=== PATIENT | male | born 1950 | race Caucasian/White ===

== ENCOUNTER 2016-12-13 19:33 | Emergency (ER) | payer MEDICARE, OTHER ==
[~2016-12-13] VITALS: Ht 185.4 cm; Wt 94.3 kg
[2016-12-13 19:33] VITALS: BP 133/74
[2016-12-13 20:12] LABS: BASOPHILS % (AUTO) 0.5 % (0.0-2.0); EOSINOPHILS # (AUTO) 0.1 /CMM (0.0-0.7); EOSINOPHILS % (AUTO) 2.8 % (0.0-6.0); HEMATOCRIT 42 % (39-51); HEMOGLOBIN 14.1 g/dL (13.5-17.5); LYMPHOCYTES # (AUTO) 1.1 /CMM (0.8-4.8); LYMPHOCYTES % (AUTO) 21.4 % (20.0-44.0); MEAN CORPUSCULAR HEMOGLOBIN 30 PG (26.0-33.0); MEAN CORPUSCULAR HGB CONC 33 g/dl (31.0-36.0); MEAN CORPUSCULAR VOLUME 89 fL (80-96); MONOCYTES # (AUTO) 0.3 /CMM (0.1-1.30); MONOCYTES % (AUTO) 6.5 % (2.0-12.0); NEUTROPHILS # (AUTO) 3.7 /CMM (1.8-8.9); NEUTROPHILS % (AUTO) 68.8 % (43.0-81.0); PLATELET COUNT (AUTO) 131 /CMM (150-450); RDW COEFFICIENT OF VARIATION 13.4 (11.5-15.0); RED BLOOD CELL COUNT(AUTO) 4.73 MIL/uL (4.5-6.0); WHITE BLOOD COUNT (AUTO) 5.2 K/uL (4.3-11.0)
[2016-12-13 20:20] LABS: CALCIUM, SERUM 8.8 mg/dL (8.5-10.1); CREATININE 1.1 mg/dL (0.6-1.3); POTASSIUM 4.5 mmol/L (3.5-5.1)
[2016-12-13 20:24] LABS: INR 0.92 (0.87-1.13); PROTHROMBIN TIME 9.6 SECS (9.5-12.7)
== END 2016-12-13 22:02 | disposition home or self-care (01) ==
LOC: ER 19:35
DX: Z01.812 Encounter for preprocedural laboratory examination (principal); I50.9 Heart failure, unspecified; Z95.2 Presence of prosthetic heart valve; D69.6 Thrombocytopenia, unspecified
CPT/HCPCS: 36415; 80048; 83735; 85025; 85730; 99284; A4606; Z7610

== ENCOUNTER 2017-07-11 12:48 | Outpatient (CLI) | payer MEDICARE, OTHER ==
[2017-07-11 13:06] LABS: BASOPHILS % (AUTO) 0.4 % (0.0-2.0); EOSINOPHILS # (AUTO) 0.1 /CMM (0.0-0.7); EOSINOPHILS % (AUTO) 1.2 % (0.0-6.0); HEMATOCRIT 41 % (39-51); HEMOGLOBIN 13.7 g/dL (13.5-17.5); LYMPHOCYTES % (AUTO) 17.7 % (20.0-44.0); MEAN CORPUSCULAR HEMOGLOBIN 31 PG (26.0-33.0); MEAN CORPUSCULAR HGB CONC 34 g/dl (31.0-36.0); MEAN CORPUSCULAR VOLUME 91 fL (80-96); MONOCYTES # (AUTO) 0.3 /CMM (0.1-1.30); MONOCYTES % (AUTO) 5.2 % (2.0-12.0); NEUTROPHILS # (AUTO) 4.4 /CMM (1.8-8.9); NEUTROPHILS % (AUTO) 75.5 % (43.0-81.0); PLATELET COUNT (AUTO) 142 /CMM (150-450); RDW COEFFICIENT OF VARIATION 14.7 (11.5-15.0); WHITE BLOOD COUNT (AUTO) 5.8 K/uL (4.3-11.0)
[2017-07-11 13:22] LABS: ALBUMIN 3.8 g/dL (3.4-5.0); BILIRUBIN,TOTAL 0.3 mg/dL (0.2-1.0); CALCIUM, SERUM 8.9 mg/dL (8.5-10.1); CREATININE 1.2 mg/dL (0.6-1.3); POTASSIUM 4.1 mmol/L (3.5-5.1); TOTAL PROTEIN, SERUM 7.6 g/dL (6.4-8.2)
[2017-07-11 13:31] LABS: THYROID STIMULATING HORMONE 0.891 uIU/mL (0.358-3.74)
== END 2017-07-11 23:59 | disposition home or self-care (01) ==
LOC: LAB 12:48
DX: I50.9 Heart failure, unspecified (principal); R60.9 Edema, unspecified
CPT/HCPCS: 36415; 80053-TC; 80061-TC; 84436-TC; 84443-TC; 85025-TC

== ENCOUNTER 2018-08-31 23:35 | Emergency (ER) | payer MEDICARE, MEDICAID ==
[~2018-08-31] VITALS: Ht 182.9 cm; Wt 90.7 kg
[2018-08-31 23:53] VITALS: BP 156/74
[2018-09-01] MEDS ORDERED: LIDOCAINE 1%-EPI 1:100,000 20 ML VIAL TP ONE (00:30)
[2018-09-01] MEDS ORDERED: TDAP [DIPH/PERTUSSIS/TET] 0.5 ML VIAL IM ONE ×2 (00:30→01:31)
[2018-09-01] MEDS ORDERED: LIDOCAINE 1%-EPI 1:100,000 20 ML VIAL ONE (00:32)
--- NOTE | 2018-09-01 01:44 | NUR ---
Patient discharged to home in stable condition. Written and verbal after care instructions given. Patient verbalizes understanding of instruction.
== END 2018-09-01 02:07 | disposition home or self-care (01) ==
LOC: ER 23:35
DX: S01.112A Laceration without foreign body of left eyelid and periocular area, initial encounter (principal); I50.9 Heart failure, unspecified; Z95.4 Presence of other heart-valve replacement; W01.198A Fall on same level from slipping, tripping and stumbling with subsequent striking against other object, initial encounter; Y93.89 Activity, other specified; Y92.89 Other specified places as the place of occurrence of the external cause; Y99.8 Other external cause status
CPT/HCPCS: 12015; 90471; 90715; 99285; J3490

== ENCOUNTER 2018-09-04 08:51 | Emergency (ER) | payer MEDICARE, MEDICAID ==
[~2018-09-04] VITALS: Ht 185.4 cm; Wt 110.2 kg
[2018-09-04 08:51] VITALS: BP 125/73
== END 2018-09-04 09:50 | disposition home or self-care (01) ==
LOC: ER 08:56
DX: S01.112D Laceration without foreign body of left eyelid and periocular area, subsequent encounter (principal); I50.9 Heart failure, unspecified; Z95.4 Presence of other heart-valve replacement; X58.XXXD Exposure to other specified factors, subsequent encounter
CPT/HCPCS: Z7502

== ENCOUNTER 2018-09-05 14:23 | Emergency (ER) | payer MEDICARE, MEDICAID ==
[~2018-09-05] VITALS: Ht 180.3 cm; Wt 85.7 kg
[2018-09-05 14:46] VITALS: BP 142/88
[2018-09-05] MEDS ORDERED: BACITRACIN ZINC OINT PACKET 1 EA PACKET TP ONE ×2 (15:12→15:30)
--- NOTE | 2018-09-05 15:17 | NUR ---
Patient discharged to home in stable condition. Written and verbal after care instructions given. Patient verbalizes understanding of instruction.
== END 2018-09-05 15:17 | disposition home or self-care (01) ==
LOC: ER 14:24
DX: S01.112D Laceration without foreign body of left eyelid and periocular area, subsequent encounter (principal); I50.9 Heart failure, unspecified; Z95.4 Presence of other heart-valve replacement; X58.XXXD Exposure to other specified factors, subsequent encounter
CPT/HCPCS: 99282; A6402

== ENCOUNTER 2019-06-14 11:51 | Emergency (ER) | payer MEDICARE, MEDICAID ==
[~2019-06-14] VITALS: Ht 180.3 cm; Wt 85.7 kg
--- NOTE | 2019-06-14 12:00 | NUR ---
bib89, from the street, abd pain, no bm x 1 week. UNABLE TO SCALE PAIN. STATES VOMITING COMMUNICATIONS DEPARTMENT HEAD. APPEARS ANXIOUS. AOX3, VSS, RR EVEN AND UNLABORED. SKIN WARM, MOIST, INTACT. DENIES SOB, DIZZINESS, WEAKNESS. ON MONITOR AND READY FOR EVAL.
[2019-06-14] MEDS ORDERED: MORPHINE SULFATE INJ 4 MG/ML DISP.SYRIN ONE (12:08)
[2019-06-14] MEDS ORDERED: ONDANSETRON HCL/PF 4 MG/2 ML VIAL ONE (12:08)
[2019-06-14 12:16] LABS: BASOPHILS # (AUTO) 0.1 /CMM (0.0-0.2); BASOPHILS % (AUTO) 0.8 % (0.0-2.0); EOSINOPHILS % (AUTO) 0.2 % (0.0-6.0); HEMATOCRIT 45 % (39-51); HEMOGLOBIN 14.9 g/dL (13.5-17.5); LYMPHOCYTES # (AUTO) 0.7 /CMM (0.8-4.8); LYMPHOCYTES % (AUTO) 7.2 % (20.0-44.0); MEAN CORPUSCULAR HGB CONC 33 g/dl (31.0-36.0); MEAN CORPUSCULAR VOLUME 94 fL (80-96); MONOCYTES # (AUTO) 0.6 /CMM (0.1-1.30); MONOCYTES % (AUTO) 6.5 % (2.0-12.0); NEUTROPHILS # (AUTO) 7.8 /CMM (1.8-8.9); NEUTROPHILS % (AUTO) 85.3 % (43.0-81.0); PLATELET COUNT (AUTO) 216 /CMM (150-450); RED BLOOD CELL COUNT(AUTO) 4.77 MIL/uL (4.5-6.0); WHITE BLOOD COUNT (AUTO) 9.1 K/uL (4.3-11.0)
[2019-06-14] MEDS ORDERED: ONDANSETRON HCL/PF 4 MG/2 ML VIAL IVP ONE (12:30)
[2019-06-14] MEDS ORDERED: IV NS 0.9% 500 ML BAG IV ONE (12:30)
[2019-06-14] MEDS ORDERED: MORPHINE SULFATE INJ 2 MG/ML DISP.SYRIN IV ONE (12:30)
[2019-06-14 12:32] LABS: ALBUMIN 3.2 g/dL (3.4-5.0); BILIRUBIN,DIRECT 0.2 mg/dL (0.0-0.2); BILIRUBIN,TOTAL 0.6 mg/dL (0.2-1.0); CREATININE 2.1 mg/dL (0.6-1.3); POTASSIUM 4.3 mmol/L (3.5-5.1); TOTAL PROTEIN, SERUM 6.9 g/dL (6.4-8.2)
--- NOTE | 2019-06-14 12:45 | NUR ---
PT TAKEN TO CT VIA [facility]
[2019-06-14] MEDS ORDERED: CIPROFLOXACIN HCL 500 MG TABLET PO ONE (13:30)
[2019-06-14] MEDS ORDERED: METRONIDAZOLE 500 MG TABLET PO ONE (13:30)
[2019-06-14] MEDS ORDERED: CIPROFLOXACIN HCL 500 MG TABLET ONE (14:01)
[2019-06-14] MEDS ORDERED: METRONIDAZOLE 500 MG TABLET ONE (14:02)
--- NOTE | 2019-06-14 14:13 | NUR ---
IV removed. Catheter intact and site benign. Pressure and 4x4 applied to site. No bleeding noted.Patient discharged to home in stable condition. Written and verbal after care instructions given. Patient verbalizes understanding of instruction.
[2019-06-14 14:44] VITALS: BP 108/69
== END 2019-06-14 14:00 | disposition home or self-care (01) ==
LOC: ER 11:54
DX: K57.32 Diverticulitis of large intestine without perforation or abscess without bleeding (principal); I50.9 Heart failure, unspecified
CPT/HCPCS: 36415; 74176; 80048; 80076; 83690; 85025; 96374; 96375; 99284; J2270; J2405; J7040

== ENCOUNTER 2019-06-18 22:47 | Emergency (ER) | payer MEDICARE, OTHER ==
[~2019-06-18] VITALS: Ht 180.3 cm; Wt 86.2 kg
[2019-06-18] MEDS ORDERED: ONDANSETRON HCL/PF 4 MG/2 ML VIAL ONE (23:19)
[2019-06-18] MEDS ORDERED: IV NS 0.9% 1,000 ML BAG IV ONE (23:30)
[2019-06-18] MEDS ORDERED: ONDANSETRON HCL/PF 4 MG/2 ML VIAL IVP ONE (23:30)
[2019-06-18 23:32] LABS: BASOPHILS # (AUTO) 0.1 /CMM (0.0-0.2); HEMATOCRIT 44 % (39-51); HEMOGLOBIN 14.2 g/dL (13.5-17.5); LYMPHOCYTES # (AUTO) 1.2 /CMM (0.8-4.8); LYMPHOCYTES % (AUTO) 18.8 % (20.0-44.0); MEAN CORPUSCULAR HGB CONC 32 g/dl (31.0-36.0); MEAN CORPUSCULAR VOLUME 95 fL (80-96); MONOCYTES # (AUTO) 0.6 /CMM (0.1-1.30); MONOCYTES % (AUTO) 10.3 % (2.0-12.0); NEUTROPHILS # (AUTO) 4.3 /CMM (1.8-8.9); NEUTROPHILS % (AUTO) 67.9 % (43.0-81.0); PLATELET COUNT (AUTO) 185 /CMM (150-450); RED BLOOD CELL COUNT(AUTO) 4.63 MIL/uL (4.5-6.0); WHITE BLOOD COUNT (AUTO) 6.3 K/uL (4.3-11.0)
--- NOTE | 2019-06-18 23:32 | NUR ---
BIBS FROM HOME. TO ER BED 4. AAOX4. NO RESP DISTRESS, BREATHING EVEN AND UNLABORED. AMBULATORY. ANXIOUS. CAME IN FOR MULTIPLE COMPLAINTS. NO BM X 2 MONTHS, URINARY DRIBBLING X 2 WEEKS, ABDOMINAL SPASM, [place] AND REPORTS THAT HE PASSED OUT 2 DAYS AGO. NO NOTED VISUAL INJURY FROM PT. GERALDINE ESTRADA WAS AT BEDSIDE. ORDERS RECEIVED, NOTED AND CARRIED OUT. IV LINE OBTAINED ON THE L AC 18G. BLOOD DRAWN AND GIVEN TO HOUSE CARPENTER HELPER AT BEDSIDE.
[2019-06-18 23:43] LABS: POTASSIUM 4.5 mmol/L (3.5-5.1)
[2019-06-18 23:48] LABS: ALBUMIN 3.1 g/dL (3.4-5.0); BILIRUBIN,DIRECT 0.1 mg/dL (0.0-0.2); BILIRUBIN,TOTAL 0.4 mg/dL (0.2-1.0); TOTAL PROTEIN, SERUM 6.6 g/dL (6.4-8.2)
--- NOTE | 2019-06-18 23:50 | NUR ---
BLADDER SCAN: 137 ML. AWARE
[2019-06-19 01:03] VITALS: BP 104/75
--- NOTE | 2019-06-19 01:03 | NUR ---
Patient discharged to home in stable condition. Written and verbal after care instructions given. Patient verbalizes understanding of instruction. Pt ambulatory with a steady gait IV removed. Catheter intact and site benign. Pressure and 4x4 applied to site. No bleeding noted.
== END 2019-06-19 01:03 | disposition home or self-care (01) ==
LOC: ER 22:53
DX: R10.9 Unspecified abdominal pain (principal); R11.10 Vomiting, unspecified; I50.9 Heart failure, unspecified; Z98.890 Other specified postprocedural states
CPT/HCPCS: 36415; 74021; 80048; 80076; 83690; 85025; 96361; 96374; 99284; J2405; J7030

== ENCOUNTER 2019-06-21 10:37 | Emergency (ER) | payer MEDICARE, OTHER ==
[~2019-06-21] VITALS: Ht 185.4 cm; Wt 99.8 kg
--- NOTE | 2019-06-21 10:45 | NUR ---
PT BIB SELF C/O BLOATING, SOB, PT IS AAOX3, NOT IN RESPIRATORY DISTRESS, HOOKED TO MONITOR, KEPT RESTED AND COMFORTABLE, WILL CONTINUE TO MONITOR.
[2019-06-21] MEDS ORDERED: ONDA4TAB5 PO (11:05)
[2019-06-21] MEDS ORDERED: PANT40TA4 PO (11:05)
[2019-06-21] MEDS ORDERED: TRAM50TA2 PO (11:05)
[2019-06-21] MEDS ORDERED: M-171CAP PO (11:05)
[2019-06-21] MEDS ORDERED: LEVO20CA PO (11:05)
[2019-06-21] MEDS ORDERED: VORT10TA PO (11:05)
--- NOTE | 2019-06-21 11:24 | NUR ---
SEEN AND EXAMINED BY .
[2019-06-21] MEDS ORDERED: IV NS 0.9% 500 ML BAG IV ONE (11:30)
--- NOTE | 2019-06-21 11:40 | NUR ---
IV LINE ESTABLISHED, BLOOD DRAWN AND SENT TO LAB.
[2019-06-21 12:01] LABS: BASOPHILS % (AUTO) 0.6 % (0.0-2.0); EOSINOPHILS % (AUTO) 1.3 % (0.0-6.0); HEMATOCRIT 43 % (39-51); HEMOGLOBIN 14.3 g/dL (13.5-17.5); LYMPHOCYTES # (AUTO) 0.8 /CMM (0.8-4.8); LYMPHOCYTES % (AUTO) 12.7 % (20.0-44.0); MEAN CORPUSCULAR HGB CONC 33 g/dl (31.0-36.0); MEAN CORPUSCULAR VOLUME 93 fL (80-96); MONOCYTES # (AUTO) 0.6 /CMM (0.1-1.30); MONOCYTES % (AUTO) 9.6 % (2.0-12.0); NEUTROPHILS % (AUTO) 75.8 % (43.0-81.0); PLATELET COUNT (AUTO) 170 /CMM (150-450); RED BLOOD CELL COUNT(AUTO) 4.63 MIL/uL (4.5-6.0); WHITE BLOOD COUNT (AUTO) 6.6 K/uL (4.3-11.0)
[2019-06-21 12:16] LABS: ALBUMIN 3.2 g/dL (3.4-5.0); BILIRUBIN,DIRECT 0.1 mg/dL (0.0-0.2); BILIRUBIN,TOTAL 0.5 mg/dL (0.2-1.0); CALCIUM, SERUM 9.3 mg/dL (8.5-10.1); CREATININE 1.6 mg/dL (0.6-1.3); POTASSIUM 4.7 mmol/L (3.5-5.1); TOTAL PROTEIN, SERUM 6.5 g/dL (6.4-8.2)
--- NOTE | 2019-06-21 13:52 | NUR ---
IV removed. Catheter intact and site benign. Pressure and 4x4 applied to site. No bleeding noted. Patient discharged to home in stable condition. Written and verbal after care instructions given. Patient verbalizes understanding of instruction.
[2019-06-21 13:54] VITALS: BP 122/76
== END 2019-06-21 13:55 | disposition home or self-care (01) ==
LOC: ER 10:43
DX: R10.9 Unspecified abdominal pain (principal); G89.29 Other chronic pain; I50.9 Heart failure, unspecified; Z95.818 Presence of other cardiac implants and grafts
CPT/HCPCS: 36415; 80048; 80076; 83690; 85025; 99283; J7040

== ENCOUNTER 2019-06-24 01:42 | Inpatient (IN) | payer MEDICARE, MEDICAID ==
[~2019-06-24] VITALS: Ht 185.4 cm; Wt 91.6 kg
[~2019-06-24 01:42] MED LIST: LEVO20CA PO; M-171CAP PO; ONDA4TAB5 PO; PANT40TA4 PO; TRAM50TA2 PO; VORT10TA PO
--- NOTE | 2019-06-24 02:18 | NUR ---
PT AAOX4. C/O "I DONT FEEL WELL, I CAN'T EAT, I CAN'T POOP, I THROW UP ALL THE TIME". PT PLACED ON MONITOR AND PULSE OX. KARIN. AT BEDSIDE.
[2019-06-24 02:26] LABS: BASOPHILS % (AUTO) 0.6 % (0.0-2.0); EOSINOPHILS % (AUTO) 0.1 % (0.0-6.0); HEMATOCRIT 44 % (39-51); HEMOGLOBIN 14.7 g/dL (13.5-17.5); LYMPHOCYTES # (AUTO) 0.8 /CMM (0.8-4.8); MEAN CORPUSCULAR HGB CONC 34 g/dl (31.0-36.0); MEAN CORPUSCULAR VOLUME 93 fL (80-96); MONOCYTES # (AUTO) 0.7 /CMM (0.1-1.30); MONOCYTES % (AUTO) 8.1 % (2.0-12.0); NEUTROPHILS # (AUTO) 6.8 /CMM (1.8-8.9); NEUTROPHILS % (AUTO) 81.2 % (43.0-81.0); PLATELET COUNT (AUTO) 178 /CMM (150-450); RED BLOOD CELL COUNT(AUTO) 4.72 MIL/uL (4.5-6.0); WHITE BLOOD COUNT (AUTO) 8.3 K/uL (4.3-11.0)
--- NOTE | 2019-06-24 02:31 | NUR ---
US AT BEDSIDE
[2019-06-24 02:40] LABS: CALCIUM, SERUM 9.3 mg/dL (8.5-10.1); CREATININE 1.9 mg/dL (0.6-1.3); POTASSIUM 4.5 mmol/L (3.5-5.1)
[2019-06-24 02:45] LABS: ALBUMIN 3.2 g/dL (3.4-5.0); BILIRUBIN,DIRECT 0.2 mg/dL (0.0-0.2); BILIRUBIN,TOTAL 0.8 mg/dL (0.2-1.0); TOTAL PROTEIN, SERUM 6.4 g/dL (6.4-8.2)
--- NOTE | 2019-06-24 03:01 | NUR ---
Patient is resting comfortably in bed. Easily aroused. VSS. Awaiting urine sample.
--- NOTE | 2019-06-24 03:28 | NUR ---
PT BACK FROM RADIOLOGY. PENDING CT RESULT.
--- NOTE | 2019-06-24 04:45 | NUR ---
ER MD SPOKE TO SHELLIE OLEARY REGARDING PT ADMISSION.
[2019-06-24 04:47] LABS: OCCULT BLOOD STOOL NEGATIVE (NEGATIVE)
[2019-06-24] MEDS ORDERED: MAGNESIUM HYDROXIDE 30 ML UDC PO PRN (05:00)
[2019-06-24] MEDS ORDERED: ACETAMINOPHEN 325 MG TABLET PO PRN (05:00)
[2019-06-24] MEDS ORDERED: FUROSEMIDE 40 MG/4 ML VIAL IV ONE ×3 (05:00→10:00)
[2019-06-24] MEDS ORDERED: MORPHINE SULFATE INJ 2 MG/ML DISP.SYRIN IV PRN (05:00)
[2019-06-24] MEDS ORDERED: HYDROCODONE/APAP 5/325MG 1 EACH TABLET PO PRN (05:00)
[2019-06-24] MEDS ORDERED: MAG HYDROX/AL HYDROX/SIMETH 30 ML UDC PO PRN (05:00)
[2019-06-24] MEDS ORDERED: ONDANSETRON HCL/PF 4 MG/2 ML VIAL IVP PRN ×2 (05:00→12:00)
--- NOTE | 2019-06-24 05:09 | NUR ---
RN NOTES RECEIVED PATIENT AWAKE ALERT ORIENTED X4, NO SIGNS OF ACUTE DISTRESS NOTED, DENIES ANY PAIN AT THIS TIME, NO SIGNS OF HALLUCINATIONS, DENIES SUICIDAL IDEATION, PATIENT REQUESTING A PHONELINE " NURSE CAN YOU HOOK A PHONE HER, SO I CAN CALL MY FRIENDS AND FAMILY MEMBERS" VERBALIZED BY PATIENT, RE ASSURED HIM THAT WE WILL PROVIDE HIM A PHONE LANDLINE. PATIENT IS COMPLIANT, NO AGGRESSIVE BEHAVIOUR NOTED AT THIS TIME, IV ACCESS ON HIS LEFT ANTECUBITAL G#18 INTACT AND PATENT, SAFETY MEASURES IN PLACE, ASPIRATION PRECAUTION EMPHASIZE, BED IN LOW LOCKED POSITION, CALL LIGHT WITHIN EASY REACH, PATIENT ROOM IS SITUATED NEAR NURSING STATION. WILL CONTINUE TO MONITOR ACCORDINGLY.
--- NOTE | 2019-06-24 06:08 | NUR ---
COMMERCIAL LAWN SPECIALIST AT BEDSIDE.
[2019-06-24] MEDS ORDERED: PANTOPRAZOLE 40 MG TABLET.DR PO SCH (07:30)
[2019-06-24 07:40] LABS: BILIRUBIN,URINE SMALL (NEGATIVE); BLOOD, URINE Negative Ery/uL (NEGATIVE); KETONES,URINE 15 (NEGATIVE); LEUKOCYTE ESTERASE ,URINE Negative (NEGATIVE); NITRITE, URINE Negative (NEGATIVE); PROTEIN,URINE 30 mg/dl (NEGATIVE); UGLUCOSE Negative (NEGATIVE); UROBILINOGEN,URINE 0.2 EU/dL (0.2)
[2019-06-24 07:43] LABS: APPEARANCE,URINE SLIGHTLY HAZY (CLEAR); BACTERIA,URINE Few /HPF (None Seen); CALCIUM OXALATE CRYSTALS,UR Few /HPF (None Seen); COLOR,URINE DARK YELLOW (YELLOW); RBC,URINE 0-2 /HPF (0-2); SQUAMOUS EPITHELIAL CELL,UR Few /HPF (None Seen)
[2019-06-24 07:44] LABS: HYALINE CASTS, URINE Few /LPF (None Seen); URINE AMORPHOUS URATE Few /HPF (None Seen)
[2019-06-24 08:00] VITALS: BP 119/87
--- NOTE | 2019-06-24 08:08 | NUR ---
report given to Ila MYERS for arturo.
[2019-06-24 08:15] VITALS: BP 119/87
--- NOTE | 2019-06-24 08:15 | NUR ---
RN NOTE PT ARRIVED AOX3, AMBULATES ,CO BEING LITTLE DIZZY, NAUSEA, NO VOMITING, PT REPORTS LAST BM COUPLE MONTHS AGO. DENIES CHEST PAIN OR PRESSURE. CO OF LITTLE SOB, BUT BREATHING REGULAR AND NORMAL AND SATURATION 99%. V-PACING ON TELEMETRY, HR 84. BLE EDEMA, +1 BLUISH TOES, EDEMATOUS HANDS TOO. SKIN IS INTACT, ONLY SMALL REDNESS IN BOTH KNEES. CO BEING DEPRESSED AND STOPPED TAKING HIS ANTIDEPRESSANT MEDS, COUPLE DAYS AGO BECAUSE "THEY WERE MAKING ME REALLY DIZZY, SICK, HEART ACHE". PT DENIES SUICIDAL IDEATION AT THIS TIME OFFERED TO CALL PSYCH MED, AND REFUSED TO SPEAK WITH PSYCHIATRIST. SAFETY MEASURES IN PLACE, CALL LIGHT WITHIN REACH, BED ALARM ON.
--- NOTE | 2019-06-24 08:30 | NUR ---
wheeled patient via gurney accompanied by RN and emt in no distress. RN at bedside to assume care.
[2019-06-24] MEDS ORDERED: LEVOMILNACIPRAN HYDROCHLORIDE 20 MG PO SCH (09:00)
[2019-06-24] MEDS: ENOXAPARIN SODIUM 100 MG/ML DISP.SYRIN SQ SCH ×2 (09:44→21:03)
--- NOTE | 2019-06-24 10:00 | NUR ---
exerciser horse Notes Patient endorsed suicidal ideation around 09. Patient stated "I've been thinking about killing myself my entire life." When asked if he had prior attempts he said several. He stated "I swallowed a bottle of 80 ativan once, and that wasn't the first time I did it." Patient spoke of general thoughts of ending his life. Spoke about the possible use of medications in his house, and the use of "physician assisted suicide". He was not able to elaborate on a time he was going to do it or a detailed plan. German Wu ACTIVE DIRECTORY SPECIALIST Immediately notified around 0950 and psych evaluation suggested. Patient stated he has a history of failed use of antidepressants. He stated he has trouble sleeping, prior manic episodes. Greman Wu assessed patient at bedside.
[2019-06-24] MEDS ORDERED: BUMETANIDE INJ 4 MG in IV NS 0.9% 24 ML IV ONE (10:30)
[2019-06-24] MEDS: [UNRECOGNIZED DRUG - OTHER] PO SCH (11:12)
--- NOTE | 2019-06-24 11:56 | NUR ---
VERIFIED WITH DR GARIBAY ABOUT BUMEX AND LASIX TO BE GIVEN TOGETHER, AND PER DR GARIBAY ITS OKAY TO GIVE BOTH.
[2019-06-24 12:00] VITALS: BP 112/75
[2019-06-24] MEDS ORDERED: FUROSEMIDE 100 MG/10 ML VIAL IV SCH (12:00)
[2019-06-24] MEDS: FUROSEMIDE 100 MG/10 ML VIAL IV SCH ×3 (12:11→21:01)
[2019-06-24] MEDS ORDERED: SACU1TAB7 PO (13:42)
[2019-06-24] MEDS ORDERED: CARV3.12 PO (13:42)
[2019-06-24 16:00] VITALS: BP 109/76
[2019-06-24] MEDS ORDERED: TRAMADOL HCL 50 MG TABLET PO PRN (16:30)
[2019-06-24] MEDS ORDERED: ONDANSETRON 4 MG TAB.RAPDIS SL PRN (16:30)
[2019-06-24] MEDS ORDERED: VALSARTAN 40 MG TABLET PO SCH (17:00)
[2019-06-24] MEDS ORDERED: CARVEDILOL 3.125 MG TABLET PO SCH (17:00)
--- NOTE | 2019-06-24 17:09 | NUR ---
felt hat steamer Notes Valsartan and carvedilol held. BP 107/85 P85. Lasix 80mg given IV Push, will recheck in an hour to see if administering other drugs is appropriate.
[2019-06-24] MEDS: PANTOPRAZOLE 40 MG TABLET.DR PO SCH (17:14)
--- NOTE | 2019-06-24 17:34 | NUR ---
fisher crab Notes Carvedilol and Valsartan held.
--- NOTE | 2019-06-24 18:47 | NUR ---
cold food packer Notes Patient voided 3 times without using Urinal. Reinforcement teaching repeated and last void was in urinal. Will continue to monitor I and O.
--- NOTE | 2019-06-24 18:52 | NUR ---
construction trench digger Closing Note Patient is in bed resting comfortably. VSS. No significant changes during shift. Carvedilol and Valsartan held. Only 80mg furosemide given. Patient has been instructed to void in a urinal to keep an accurate I and O. Bed in lowest position, call light within reach, all measures taken to ensure patient safety.
--- NOTE | 2019-06-24 19:48 | NUR ---
pt co about not getting his heart medicine, so RN explained him that pt had lasix large doses today and which will reduce his BP further, currently 116/82 mmhg, HR 84. pt co being dizzy, and that is why bp meds were held at 1700 on 06/24/19. Addendum: 06/24/19 at 4 by ROSANNA VALDOVINOS RN information regarding entresto given, but pt refused teaching material.
[2019-06-24 20:00] VITALS: BP 109/80
--- NOTE | 2019-06-24 21:01 | NUR ---
RN NOTES LAST DOSE OF LASIX INJ 80 MG Q 4HOURS 3 OF 3 GIVEN, WILL MONITOR BLOOD PRESSURE, CURRENT BP 109/80, HR 84, DIOVAN 40 MG TAB AND COREG 3.125 MG TAB, NOT GIVEN. SAFETY MEASURES INPLACE, CALL LIGHT WITH NI EASY REACH. NO ACUTED DISTRESS AT THIS TIME.
[2019-06-25] VITALS (33 sets, daily range): BP systolic 54–130; BP diastolic 36–82
--- NOTE | 2019-06-25 07:30 | NUR ---
RN NOTES ALL NEEDS ATTENDED AND MET, NO CHANGE OF CONDITION, SAFETY MEASURES IN PLACE, CALL LIGHT WITHIN EASY REACH, ENDORSED TO AM NURSE FOR CONTINUITY OF CARE.
--- NOTE | 2019-06-25 08:00 | NUR ---
RECEIVED PT IN BED EATING BREAKFAST,ALERT AND ORIENTED X4.VERBALLLY RESPONSIVE C/O FEELING TIRED BLAMING IT ON THE LASIX IV X3 HE RECEIVED LAST NIGHT.CHECKED PT'S BP 85/60 HR 69 RR 20 O2 SAT 95% T 97.5.WHEN CHECKED MANUALLY,BP WAS 80/6O HR [address] GARIBAY.WILL MONITOR.
[2019-06-25] MEDS ORDERED: DoBUTamine 500 MG/250 ML PIGGYBACK IV ONE (08:30)
--- NOTE | 2019-06-25 08:30 | NUR ---
TRANSFERRED PT TO ICU ROOM 262 AND GAVE REPORT TO LOUIS MCFADDEN WITH MEDS AND BELONGINGS.
--- NOTE | 2019-06-25 08:45 | NUR ---
REPORT RECEIVED FOR LASHONDA.
[2019-06-25] MEDS: [UNRECOGNIZED DRUG - OTHER] PO SCH (09:08)
[2019-06-25] MEDS: PANTOPRAZOLE 40 MG TABLET.DR PO SCH ×2 (09:08→16:15)
[2019-06-25] MEDS: ENOXAPARIN SODIUM 100 MG/ML DISP.SYRIN SQ SCH ×2 (09:08→22:05)
[2019-06-25 11:35] LABS: BASOPHILS # (AUTO) 0.1 /CMM (0.0-0.2); BASOPHILS % (AUTO) 1.4 % (0.0-2.0); EOSINOPHILS % (AUTO) 2.4 % (0.0-6.0); HEMATOCRIT 41 % (39-51); HEMOGLOBIN 13.6 g/dL (13.5-17.5); LYMPHOCYTES # (AUTO) 1.1 /CMM (0.8-4.8); LYMPHOCYTES % (AUTO) 17.7 % (20.0-44.0); MEAN CORPUSCULAR HGB CONC 33 g/dl (31.0-36.0); MEAN CORPUSCULAR VOLUME 93 fL (80-96); MONOCYTES # (AUTO) 0.6 /CMM (0.1-1.30); MONOCYTES % (AUTO) 10.5 % (2.0-12.0); NEUTROPHILS # (AUTO) 4.1 /CMM (1.8-8.9); PLATELET COUNT (AUTO) 144 /CMM (150-450); RED BLOOD CELL COUNT(AUTO) 4.45 MIL/uL (4.5-6.0)
[2019-06-25 12:06] LABS: ALBUMIN 2.7 g/dL (3.4-5.0); BILIRUBIN,TOTAL 0.5 mg/dL (0.2-1.0); CALCIUM, SERUM 8.2 mg/dL (8.5-10.1); CREATININE 2.2 mg/dL (0.6-1.3); MAGNESIUM 1.9 mg/dL (1.8-2.4); PHOSPHORUS 4.5 mg/dL (2.5-4.9); POTASSIUM 3.3 mmol/L (3.5-5.1); TOTAL PROTEIN, SERUM 5.4 g/dL (6.4-8.2)
[2019-06-25 12:16] LABS: THYROID STIMULATING HORMONE 1.499 uIU/mL (0.358-3.74)
[2019-06-25] MEDS: DOBUTamine 500 MG in IV D5W 210 ML IV PRN (14:10)
[2019-06-25] MEDS ORDERED: BUMETANIDE INJ 6 MG in IV NS 0.9% 36 ML IV ONE (18:00)
[2019-06-25] MEDS ORDERED: POTASSIUM CHLORIDE 20 MEQ TAB.PRT.SR PO ONE (18:00)
[2019-06-25] MEDS: PHENYLEPHRINE 80 MG in IV D5W 250 ML IV PRN (18:58)
--- NOTE | 2019-06-25 19:00 | NUR ---
ICU/CANOPY INSPECTOR STEVE WAS INCREASED TO 120MCG FROM 100MCG WITH BP AT 54/38. WILL CONTINUE TO MONITOR THIS PT AND HIS LOW BLOOD PRESSURE.
--- NOTE | 2019-06-25 19:30 | NUR ---
ICU/STUDENT DRIVING INSTRUCTOR STEVE INCREASED TO 140MCG FROM 120 DUE TO LOW BP AT 70/47. CHARGE NURSE WAS NOTIFIED ABOUT THIS AND INCREASED THE DRIP. WILL CONTINUE TO MONITOR THIS PT AND HIS BP.
--- NOTE | 2019-06-25 20:02 | NUR ---
RN CLOSING NOTES PT IS ALERT STATES HE WANTED TO SLEEP. PT WAS UNCOOPERATIVE IN THE AFTERNOON BUT DID ALLOW FOR IV MEDICATIONS TO BE GIVEN. PT HAS URINAL AT BEDSIDE. PT IS A&OX4. PT DENIES PAIN OR SOB AT PRESENT MOMENT. REPORT GIVEN TO LAMINATOR NURSE FOR LASHONDA.
--- NOTE | 2019-06-25 20:10 | NUR ---
ICU/TEST PREPARER PT FOUND SITTING AT THE EDGE OF BED, ASKED PT TO RETURN TO LAYING DON IN BED DUE TO THE BUMEX DRIP RUNNING AND ALSO PT IS ON 2X CARDIAC DRIP OF STEVE AND DOPAMINE. PT REFUSED, TRIED TO REASON WITH PT HOWEVER PT STARTED TO YELL, AT THIS TIME OTHER MEDICAL STAFF CAME IN TO ASST. PT IS DIFFICULT TO REASON WITH, DOESN'T CARE THAT HE IS IN DANGER OF FALLING OVER DUE TO LOW BP. BED ALARM IS IN PLACE. PT AT THIS TIME C/O OF SOB, CALLED MD FOR BREATHING TREATMENT ORDER.
--- NOTE | 2019-06-25 21:00 | NUR ---
ICU/EDUCATIONAL PSYCHOLOGY PROFESSOR BREATHING TREATMENT ORDER WAS OBTAINED FOR THIS PT, RT WENT IN TO GIVE TREATMENT HOWEVER PT REFUSED. HE SAID IT WILL "KILL HIM" PT IS NOT ON HIS NORMAL PSYCHIATRIC MEDICATIONS. PT IS TO HAVE PSYIC EVAL.
[2019-06-25] MEDS ORDERED: IPRATROPIUM NEB FS 0.5 MG/2.5 ML AMPUL.NEB NEB PRN (21:30)
[2019-06-25] MEDS ORDERED: ALBUTEROL FS 2.5 MG/3 ML VIAL.NEB NEB PRN (21:30)
--- NOTE | 2019-06-25 22:07 | NUR ---
ICU/SUGAR PLANTATION MANAGER PT'S INFORMATION SHEET/FACE SHEET WAS FAXED OVER [facility] THIS WAS ORDERED BY ROJAS SOTO ON 06/24 DUE TO PT VERBALIZED HE WANTS TO , WITH HISTORY OF DEPRESSION.
--- NOTE | 2019-06-25 23:30 | NUR ---
ICU/GUEST SPECIALIST PT'S BROTHER WENDI HAD CALLED FOR AN UPDATE ON HIS BROTHERS CONDITION, UPDATE WAS GIVEN HOWEVER THE BROTHER HAD ASKED TO SPEAK TO THE PT. PT HAD VERBALIZED TO DAY SHIFT NURSE THAT HE DOESN'T WANT TO TALK TO HIS FAMILY CURRENTLY. THIS WAS EXPRESSED TO THE BROTHER WENDI, i ALSO EXPLAINED THAT I CAN'T MAKE THE PT TALK TO THE BROTHER. PT WILL TALK WHEN HE IS READY TO. AT THIS TIME THE BROTHER HUNG UP ON ME.
[2019-06-25] MEDS ORDERED: PHENYLEPHRINE 10 MG/ML VIAL ONE (23:54)
[2019-06-26] VITALS (57 sets, daily range): BP systolic 77–117; BP diastolic 36–79
--- NOTE | 2019-06-26 00:54 | NUR ---
ICU/SUB PLANT MANAGER PT AGAIN SEEN SITTING AT THE EDGE OF THE BED, EXPLAINED THAT IF HE IS FEEING SHORTNESS OF BREATH AND DIZZY THEN IT IS NOT A GOOD IDEAL TO BE DOING THAT. PT BECOMES VERY AGITATED AND COMBATIVE AND YELLS. PT IS STRONGLY URGED TO MOVE BACK TO CENTER OF BED BUT REFUSED.
[2019-06-26] MEDS: PHENYLEPHRINE 80 MG in IV D5W 250 ML IV PRN ×4 (01:00→23:07)
--- NOTE | 2019-06-26 03:00 | NUR ---
ICU/HOST/HOSTESS GROUND PT HAD A LOSE SOFT LARGE BM, PT REFUSED TO BE CLEANED. PT APPEARED TO HAVE SOME SORT OF PANIC ATTACH. TRIED TO CLEAN PT UP MUCH POSSIBLE.
[2019-06-26] MEDS: DOBUTamine 500 MG in IV D5W 210 ML IV PRN ×3 (03:15→16:59)
--- NOTE | 2019-06-26 04:30 | NUR ---
ICU/CONSULTING SERVICES MANAGER PT REFUSED AM LABS, EXPLAINED THAT AUTOMATION MECHANIC NEEDS TO HAVE THESE, HOWEVER PT REFUSED TO LET ANYONE TOUCH HIM. CHARGE NURSE IS AWARE OF THE SITUATION.
--- NOTE | 2019-06-26 05:50 | NUR ---
ICU/COLOR SHOP HELPER PT REFUSED EKG, CHARGE NURSE MADE AWARE. PT ALSO IS STILL REFUSING AM LABS
--- NOTE | 2019-06-26 07:00 | NUR ---
RN - ICU OPENING PATIENT IS ASLEEP ON THE BED PATIENT IS EASILY WOKEN BUT PATIENT SEEMS RESTLESS AND WENT BACK TO SLEEP. PATIENT HAS ROSCOE PIC LINE WITH STEVE @ 180MCG AND DOBU AT 5 MCG . PATIENT ALSO HAS A L AC # 18 BOTH LINES CLEAN AND PATENT. NO SIGNS OF INFILTRATION OR INFECTION AT THE SITE. BED LOCKED AND LOWEST POSITION CALL LIGHT WITH IN REACH ALL SAFETY MEASURE IMPLEMENTED PER HOSPITAL POLICY.
--- NOTE | 2019-06-26 07:55 | NUR ---
RN - ICU VITALS PATIENT REFUSED TO HAVE TEMPERATURE TAKEN YELLING AT THE PRIVACY SPECIALIST TO GET OUT OF THE ROOM
[2019-06-26] MEDS: ENOXAPARIN SODIUM 100 MG/ML DISP.SYRIN SQ SCH ×3 (09:00→20:06)
[2019-06-26] MEDS: PANTOPRAZOLE 40 MG TABLET.DR PO SCH ×2 (09:29→16:18)
[2019-06-26] MEDS: [UNRECOGNIZED DRUG - OTHER] PO SCH (09:29)
--- NOTE | 2019-06-26 16:24 | NUR ---
TABLE GAMES MANAGER PATIENT REFUSED BATHING AND CHANGING LINEN. PATIENT WAS INFORM 3 X TIMES RISK AND BENEFITS. AFTER EXPLANATION PATIENT STILL REFUSED
[2019-06-26 18:43] LABS: BASOPHILS % (AUTO) 0.7 % (0.0-2.0); EOSINOPHILS % (AUTO) 0.9 % (0.0-6.0); HEMATOCRIT 38 % (39-51); HEMOGLOBIN 12.7 g/dL (13.5-17.5); LYMPHOCYTES # (AUTO) 0.7 /CMM (0.8-4.8); LYMPHOCYTES % (AUTO) 11.9 % (20.0-44.0); MEAN CORPUSCULAR HGB CONC 33 g/dl (31.0-36.0); MEAN CORPUSCULAR VOLUME 93 fL (80-96); MONOCYTES # (AUTO) 0.5 /CMM (0.1-1.30); MONOCYTES % (AUTO) 8.8 % (2.0-12.0); NEUTROPHILS # (AUTO) 4.4 /CMM (1.8-8.9); NEUTROPHILS % (AUTO) 77.7 % (43.0-81.0); PLATELET COUNT (AUTO) 131 /CMM (150-450); RED BLOOD CELL COUNT(AUTO) 4.11 MIL/uL (4.5-6.0); WHITE BLOOD COUNT (AUTO) 5.7 K/uL (4.3-11.0)
[2019-06-26 19:18] LABS: ALBUMIN 2.5 g/dL (3.4-5.0); BILIRUBIN,TOTAL 0.6 mg/dL (0.2-1.0); CALCIUM, SERUM 7.8 mg/dL (8.5-10.1); CREATININE 1.7 mg/dL (0.6-1.3); MAGNESIUM 1.7 mg/dL (1.8-2.4); PHOSPHORUS 3.3 mg/dL (2.5-4.9); POTASSIUM 3.4 mmol/L (3.5-5.1); TOTAL PROTEIN, SERUM 5.5 g/dL (6.4-8.2)
--- NOTE | 2019-06-26 19:30 | NUR ---
BRIDGE PAINTER PATIENT IS ALERT AND ORIENTED X4 PATIENT IS COOPERATIVE DURING THE DAY PATIENT DID NOT ACT OUT . THERE ARE TIME PATIENT DOES REFUSED SOME OF THE CARE PROVIDE FOR EXAMPLE REPOSITION. FOOD THAT IS PROVIDED. BED LOCKED AND LOWEST POSITION CALL LIGHT WITH IN REACH ALL SAFETY MEASURE IMPLEMENTED PER HOSPITAL POLICY
[2019-06-26] MEDS: risperiDONE 1 MG TABLET PO SCH (20:04)
--- NOTE | 2019-06-26 20:10 | NUR ---
TOW BOAT CAPTAIN PT DECLINED LOVENOX; EDUCATED PT ON WHAT IT IS FOR AND PT STATED OH I DON'T KNOW. ACCEPTED THE RISPERIDONE BUT WAS HESITANT TO TAKE IT. CONTINUE TO MONITOR.
--- NOTE | 2019-06-26 20:20 | NUR ---
PERSONAL PROPERTY ASSESSOR RCD PHONE CALL FROM PTS BROTHER WENDI. STATED TO LET PT KNOW HE CALLED AND HOPES HE FEEL BETTER.
[2019-06-26] MEDS: MIRTAZAPINE 15 MG TABLET PO SCH (22:00)
--- NOTE | 2019-06-26 22:20 | NUR ---
JOB PRESS FEEDER PER DOCUMENTATION PT HAS NOT URINATED SINCE 0600; PER PT HE USUALLY DOES NOT URINATE. INFORMED MD W/ORDERS FOR BLADDER SCAN AND IN/OUT STRAIGHT CATH. PT REFUSES. EDUCATED PT THAT IF HE FEELS UNCOMFORTABLE AT ANY POINT WE CAN PLACE GAUTAM PT INSISTS THIS IS NORMAL FOR HIM. PT NONCOMPLIANT WITH MOST TREATMENT. CONTINUE TO MONITOR.
--- NOTE | 2019-06-26 22:30 | NUR ---
INDUSTRIAL MAINTENANCE INSTRUCTOR PT DECLINED REMERON; STATES HE IS NOT SURE HE WANTS IT. HE WILL THINK ABOUT IT. EDUCATED PT ON THE MEDICATION BUT HE IS STILL UNSURE ABOUT IT. PER PT HE DOES NOT WANT ANY MEDICATION THAT WILL MAKE HIM SLEEPY. WILL ATTEMPT AGAIN TO HAVE PT TAKE MEDICATION. CONTINUE TO MONITOR.
[2019-06-27] VITALS (90 sets, daily range): BP systolic 66–145; BP diastolic 23–93
--- NOTE | 2019-06-27 00:40 | NUR ---
CREDIT SUPPORT SPECIALIST PT SLEEPING AT THIS TIME; TITRATING STEVE NEEDED.
--- NOTE | 2019-06-27 02:00 | NUR ---
BATTERY CHARGER TESTER NOTED PT VOIDED IN BED; SITTING AT THE EDGE OF THE BED AT THIS TIME. ALLOWED LINEN TO BE CHANGED. CONTINUE TO MONITOR.
--- NOTE | 2019-06-27 03:56 | NUR ---
ELECTRONIC INTEGRATED SYSTEMS MECHANIC PT ANXIOUS AT THIS TIME CONTINUOUSLY SHAKING BOTH LEGS AND MOVING ARMS AROUND. UNABLE TO GET ACCURATE BP READING AT THIS TIME. MONITOR SHOWS SBP IN THE 80s. NEOSYNEPHRINE @ 240 MCG/MIN. ASKED PT HOW HE CAN BE HELPED WITH WHAT HE IS FEELING. PT STATES IF YOU CAN JUST LEAVE ME ALONE. WILL ATTEMPT TO RECHECK BP ONCE PT IS CALM.
[2019-06-27 04:31] LABS: BASOPHILS # (AUTO) 0.1 /CMM (0.0-0.2); BASOPHILS % (AUTO) 0.8 % (0.0-2.0); EOSINOPHILS % (AUTO) 1.9 % (0.0-6.0); HEMATOCRIT 38 % (39-51); HEMOGLOBIN 12.7 g/dL (13.5-17.5); LYMPHOCYTES # (AUTO) 0.9 /CMM (0.8-4.8); LYMPHOCYTES % (AUTO) 15.8 % (20.0-44.0); MEAN CORPUSCULAR HGB CONC 33 g/dl (31.0-36.0); MEAN CORPUSCULAR VOLUME 92 fL (80-96); MONOCYTES # (AUTO) 0.6 /CMM (0.1-1.30); MONOCYTES % (AUTO) 9.7 % (2.0-12.0); NEUTROPHILS # (AUTO) 4.3 /CMM (1.8-8.9); NEUTROPHILS % (AUTO) 71.8 % (43.0-81.0); PLATELET COUNT (AUTO) 137 /CMM (150-450); RED BLOOD CELL COUNT(AUTO) 4.16 MIL/uL (4.5-6.0)
[2019-06-27] MEDS: PHENYLEPHRINE 80 MG in IV D5W 250 ML IV PRN ×3 (05:00→15:18)
[2019-06-27 05:01] LABS: ALBUMIN 2.6 g/dL (3.4-5.0); BILIRUBIN,TOTAL 0.5 mg/dL (0.2-1.0); CALCIUM, SERUM 7.9 mg/dL (8.5-10.1); CREATININE 1.6 mg/dL (0.6-1.3); MAGNESIUM 1.8 mg/dL (1.8-2.4); PHOSPHORUS 3.5 mg/dL (2.5-4.9); POTASSIUM 3.3 mmol/L (3.5-5.1); TOTAL PROTEIN, SERUM 5.5 g/dL (6.4-8.2)
--- NOTE | 2019-06-27 06:19 | NUR ---
PATIENT FLOW COORDINATOR PT REMAINED NAKED ALL NIGHT. PT DECLINED SOME MEDICATIONS EDUCATION PROVIDED TO PT BUT HIS RESPONSE WAS "I DON'T KNOW." CONTINUE TO MONITOR.
[2019-06-27] MEDS ORDERED: BUMETANIDE INJ 8 MG in IV NS 0.9% 48 ML IV ONE (06:30)
--- NOTE | 2019-06-27 07:20 | NUR ---
RN INITIAL NOTES RECEIVED PT AWAKE, A/O4. ON ROOM AIR. NO RESPIRATORY DISTRESS NOTED. NO SOB NOTED. PT V.PACING ONT HE MONITOR. ROSCOE PICC IN PLACE. PT ON STEVE AT 260MCG/MIN AND DOBUTAMINE AT 5MCG/KG/MIN. WILL TITRATE ACCORDINGLY. PT CONTINENT, USES URINAL. PT COMFORTABLE. WILL CLOSELY MONITOR
[2019-06-27] MEDS: risperiDONE 1 MG TABLET PO SCH ×2 (07:50→19:18)
[2019-06-27] MEDS: POTASSIUM CHLORIDE 20 MEQ TAB.PRT.SR PO SCH ×3 (07:50→09:28)
[2019-06-27] MEDS: DOBUTamine 500 MG in IV D5W 210 ML IV PRN ×2 (08:19→23:48)
[2019-06-27] MEDS: PANTOPRAZOLE 40 MG TABLET.DR PO SCH ×3 (08:56→16:35)
[2019-06-27] MEDS: ENOXAPARIN SODIUM 30 MG/0.3 ML DISP.SYRIN SQ SCH (08:57)
[2019-06-27 10:26] LABS: *SPE A/G RATIO 1.2 (0.7-1.7); *SPE ALBUMIN 2.7 g/dL (2.9-4.4); *SPE ALPHA-1-GLOBULIN 0.3 g/dL (0.0-0.4); *SPE ALPHA-2-GLOBULIN 0.6 g/dL (0.4-1.0); *SPE BETA GLOBULIN 0.8 g/dL (0.7-1.3); *SPE GLOBULIN, TOTAL 2.2 g/dL (2.2-3.9); *SPE M-SPIKE Not Observed g/dL (Not Observed); *SPEGAMMA GLOBULIN 0.5 g/dL (0.4-1.8)
--- NOTE | 2019-06-27 10:45 | NUR ---
RN NOTES SEEN AND EXAMINED BY ROJAS SOTO DNP. MF AWARE OF LAB VALUES AND CX RESULT. POTASSIUM, 3.3, REPLACEMENT ORDERED. PT REMAINS ON STEVE AND DOBUTAMINE, WILL TITRATE ACCORDINGLY. ALSO NOTIFIED MEDICATION REFUSAL, OFFERED 3X. EXPLAINED BENEFITS, STILL REFUSED. WILL CONTINUE TO MONITOR Addendum: 06/27/19 at 1500 by KELLI ZARAGOZA RN 1045 PT STARTED OB BUMEX. OFFERED CONDOM CATH FOR ACCURATE I&O. PT REFUSED. PREFERS USE OF DIAPER. ROJAS SOTO DNP NOTIFIED.
[2019-06-27 11:07] LABS: PTH, INTACT 84 pg/mL (15-65)
--- NOTE | 2019-06-27 18:32 | NUR ---
RN CLOSING NOTES NO SIGNIFICANT CHANGE NOTED. DENIES ANY PAIN. NO RESPIRATORY DISTRESS NOTED. NO SOB NOTED. PT REMAINS ON STEVE AND DOBUTAMINE, TITRATED ACCORDINGLY. KEPT CLEAN AND DRY. ALL NEEDS ATTENDED AND MET. CALL LIGHT WITHIN REACH. WILL ENDORSE FOR CONTINUITY OF CARE
--- NOTE | 2019-06-27 19:10 | NUR ---
BASKET GRADER FOUND PT IN BED UPSET THAT HE HAD BM. PT PLACED DIAPER ON CHAIR. CONTINUE TO MONITOR.
--- NOTE | 2019-06-27 19:41 | NUR ---
FINANCIAL DIRECTOR DR BELLO AT BEDSIDE SEEING PT.
[2019-06-27] MEDS: MIRTAZAPINE 15 MG TABLET PO SCH (21:42)
--- NOTE | 2019-06-27 22:00 | NUR ---
DIE SINKER APPRENTICE PT ASKING WHAT'S THE PLAN NOW. PT UNSURE THE REMERON AND RISPERDAL ARE WORKING. PT STATES HE FEEL EVERYTHING IS BOXING IN. ATTEMPTED RELAXATION METHODS WITH PT. PT DECLINES FOOD OR DRINKS AT THIS TIME HE DOES NOT WANT TO HAVE BOWEL MOVEMENTS; TOLD PT IT IS NORMAL TO HAVE BM. PT UPSET HE HAD BM. FEELS THE PSYCH MEDS ARE GIVING HIM ENERGY TO HAVE BMS AND HE DOES NOT THINK THIS IS RIGHT. CONTINUE TO MONITOR.
[2019-06-28] VITALS (45 sets, daily range): BP systolic 78–135; BP diastolic 45–94
[2019-06-28] MEDS: LORAZEPAM INJ 2 MG/ML VIAL IV PRN (00:23)
--- NOTE | 2019-06-28 00:25 | NUR ---
SLIP COVER ESTIMATOR PT HAS BEEN EXTREMELY AGITATED FOR THE PAST THREE HOURS. PT UNABLE TO VERBALIZE WHAT HE IS FEELING. PT SITTING AT THE EDGE OF THE BED ATTEMPTING TO SAY WHAT HE NEEDS TO SAY. PT FINALLY STATES THAT THE PSYCH MEDICATIONS WE HAVE GIVEN HIM IN HIS BODY ARE COMPOUNDING AND THAT THEY ARE NOT WORKING. PT ALSO UPSET THAT HE HAD A BOWEL MOVEMENT STATES HE HAS NOT HAD ONE IN 20 MONTHS. ALTHOUGH PT HAS GONE DAILY FOR THE PAST TWO DAYS. PT IS ALSO NOW URINATING IN HIS DIAPER TO BEFORE HE WOULD VOID IN THE BED. PT NOTED TO BE MORE COMPLIANT IN HIS BEHAVIOR. PT HAS KEPT GOWN ON AND PT HAS NOT BEEN ASKING FOR FOR FOOD THIS SHIFT WHERE LAST NIGHT HE KEPT ASKING FOR FOOD EVERY HOUR. PT FEELS THE MEDICATION GAVE HIM THE ENERGY TO HAVE A BM AND HE FEELS THAT THIS IS NOT RIGHT. EDUCATED PT ON HIS DIET; PT STATES HE DOES NOT REALLY EAT AT HOME BUT HERE HE HAS BEEN EATING AND DRINKING A LOT OF APPLE JUICE; EXPLAINED TO PT IT IS NORMAL TO HAVE BOWEL MOVEMENTS. PT HAS BEEN COOPERATIVE VERY AGITATED AND SCARED THAT THE MEDICATIONS ALL ACCUMULATING IN HIS BODY. RCD ORDER FOR ATIVAN 1 MG; PT AGREED TO TAKE MEDICATION HE COULD NOT SAY WHAT WAS GOING ON. CONTINUE TO MONITOR.
--- NOTE | 2019-06-28 03:12 | NUR ---
APARTMENT RENTAL AGENT PT SLEEPING AT THIS TIME. CONTINUE TO MONITOR BEHAVIOR.
--- NOTE | 2019-06-28 03:54 | NUR ---
GROMMET WORKER PT REMOVED LEADS, O2 SENSOR, BP CUFF AND PULLED OUT PICC LINE. PT GOT OUT OF BED AND WAS STATING HE NEEDS TO SLEEP. PT WAS SLEEPING PRIOR TO THIS HAPPENING. REORIENTED PT. CHARGE NURSE OBTAINED ORDER FOR 1:1 SITTER. SITTER AT BEDSIDE NOW. WILL ATTEMPT TO INSERT PERIPHERAL IV ACCESS UNTIL PICC LINE CAN BE PLACED. CONTINUE TO MONITOR. Addendum: 06/28/19 at 0358 by WALI GREEN RN BED ALARM WAS ON AND DID NOT SOUND.
[2019-06-28 05:01] LABS: BASOPHILS % (AUTO) 0.4 % (0.0-2.0); EOSINOPHILS % (AUTO) 1.6 % (0.0-6.0); HEMATOCRIT 41 % (39-51); HEMOGLOBIN 13.7 g/dL (13.5-17.5); LYMPHOCYTES # (AUTO) 0.9 /CMM (0.8-4.8); MEAN CORPUSCULAR HGB CONC 34 g/dl (31.0-36.0); MEAN CORPUSCULAR VOLUME 92 fL (80-96); MONOCYTES # (AUTO) 0.6 /CMM (0.1-1.30); MONOCYTES % (AUTO) 9.8 % (2.0-12.0); NEUTROPHILS # (AUTO) 4.7 /CMM (1.8-8.9); NEUTROPHILS % (AUTO) 74.2 % (43.0-81.0); PLATELET COUNT (AUTO) 138 /CMM (150-450); RED BLOOD CELL COUNT(AUTO) 4.42 MIL/uL (4.5-6.0); WHITE BLOOD COUNT (AUTO) 6.4 K/uL (4.3-11.0)
[2019-06-28 05:09] LABS: BILIRUBIN,TOTAL 0.8 mg/dL (0.2-1.0); CALCIUM, SERUM 8.3 mg/dL (8.5-10.1); CREATININE 1.8 mg/dL (0.6-1.3); MAGNESIUM 1.7 mg/dL (1.8-2.4); PHOSPHORUS 3.4 mg/dL (2.5-4.9); POTASSIUM 3.5 mmol/L (3.5-5.1); TOTAL PROTEIN, SERUM 6.3 g/dL (6.4-8.2)
--- NOTE | 2019-06-28 05:25 | NUR ---
STRETCHER OPERATOR PT SLEEPING AT THIS TIME. SITTER REMAINS AT BEDSIDE.
[2019-06-28] MEDS ORDERED: BUMETANIDE INJ 8 MG in IV NS 0.9% 48 ML IV ONE (07:00)
--- NOTE | 2019-06-28 07:05 | NUR ---
RN INITIAL NOTES RECEIVED PT ASLEEP,EASILY AROUSABLE. ON ROOM AIR. NO RESPIRATORY DISTRESS NOTED. NO SOB NOTED. PT V.PACING ONT HE MONITOR. PT ON DOBUTAMINE AT 5MCG/KG/MIN. ON 1:1 SITTER. PT COMFORTABLE. CALL LIGHT WITHIN REACH. WILL CLOSELY MONITOR
[2019-06-28] MEDS: risperiDONE 1 MG TABLET PO SCH ×2 (07:57→19:30)
[2019-06-28] MEDS: POTASSIUM CHLORIDE 20 MEQ TAB.PRT.SR PO SCH ×3 (07:57→10:06)
[2019-06-28] MEDS: ENOXAPARIN SODIUM 30 MG/0.3 ML DISP.SYRIN SQ SCH (09:00)
[2019-06-28] MEDS: PANTOPRAZOLE 40 MG TABLET.DR PO SCH ×2 (09:10→16:26)
[2019-06-28] MEDS ORDERED: Magnesium 1GM/D5W 100ML PREMIX 100 ML IV SCH ×3 (10:00→12:30)
[2019-06-28] MEDS: DOBUTamine 500 MG in IV D5W 210 ML IV PRN (12:50)
[2019-06-28] MEDS ORDERED: Magnesium 1GM/D5W 100ML PREMIX PIGGYBACK IV ONE (16:00)
--- NOTE | 2019-06-28 18:34 | NUR ---
RN CLOSING NOTES NO SIGNIFICANT CHANGE NOTED. DENIES ANY PAIN. NO RESPIRATORY DISTRESS NOTED. NO SOB NOTED. PT REMAINS ON DOBUTAMINE DRIP. VITAL SIGNS WNL. . KEPT CLEAN AND DRY. ALL NEEDS ATTENDED AND MET. ON 1:1 SITTER. CALL LIGHT WITHIN REACH. WILL ENDORSE FOR CONTINUITY OF CARE
--- NOTE | 2019-06-28 19:05 | NUR ---
RN OPENING NOTES: PATIENT SITTING ON THE BED, ALERT, AND VERBALLY RESPONSIVE. NO SOB. ON RA, TOLERATING WELL, O2 SAT 96%. NO C/O PAIN. PATIENT IS CALM AT THIS TIME. V-PACING ON MONITOR. REMAINS ON DOBUTAMINE 5 MCG/KG/MIN. INTRODUCED SELF TO PATIENT. SAFETY PRECAUTIONS IMPLEMENTED. BED LOCKED, ALARM ON, AND IN LOW POSITION. OFFERED TO CHANGE LINENS AND DIAPER BUT DECLINED AT THIS TIME. NO EPISODES OF AGGRESSION. CALL LIGHT PLACED WITHIN REACH. WILL CONT. TO MONITOR. Addendum: 06/29/19 at 0734 by CARLOS ENRIQUE ADLER RN LATE ENTRY: NO SITTER AVAILABLE DURING SHIFT.
--- NOTE | 2019-06-28 20:15 | NUR ---
RN NOTE: WENDI GARVEY (PATIENT'S BROTHER) CALLED AND UPDATED ON PATIENT'S STATUS.
--- NOTE | 2019-06-28 20:50 | NUR ---
RN NOTE: PATIENT REFUSED RISPERIDONE. EXPLAINED RISKS AND CONSEQUENCES. PATIENT STATES, "I JUST WANT TO BE LEFT ALONE." PATIENT REMAINS CALM AT THIS TIME. WILL CONT. TO MONITOR. Addendum: 06/28/19 at 2051 by CARLOS ENRIQUE ADLER RN MEDICATION WASTED. WITNESSED BY LOUIS VERGARA.
--- NOTE | 2019-06-28 21:53 | NUR ---
RN NOTE: SENIOR ANDROID DEVELOPER INFORMED ME THAT LEADS ARE OFF. WENT TO PATIENT'S ROOM AND EXPLAINED TO HIM IF I CAN CHECK AND REPLACE THE LEADS. PATIENT REFUSED AND SAID, "PLEASE LEAVE ME ALONE." EDUCATION PROVIDED TO PATIENT. STILL REFUSED. CHARGE NURSE AWARE. WILL CONT. TO MONITOR.
[2019-06-28] MEDS ORDERED: HALOPERIDOL LACTATE INJ 5 MG/ML VIAL IM ONE (23:00)
--- NOTE | 2019-06-28 23:00 | NUR ---
RN NOTE: PATIENT NOTED WITH ANXIETY AND RESTLESSNESS M/B REMOVING BP CUFF AND YELLING AT STAFF. PATIENT ALSO REMOVED (L) EJ G20 IV LINE. ATTEMPTED TO CALM PATIENT. DISTRACTION AND FREQUENT REORIENTATION PROVIDED. EXPLAINED PLAN OF CARE AND PROVIDED EDUCATION TO PATIENT; NON-PHARMACOLOGICAL INTERVENTIONS INEFFECTIVE. CHARGE NURSE NOTIFIED DR. SUGGS AND RECEIVED ORDERS FOR BILATERAL SOFT WRIST RESTRAINTS AND HALDOL. WILL CONT. TO MONITOR.
[2019-06-28] MEDS: MIRTAZAPINE 15 MG TABLET PO SCH (23:11)
[2019-06-29] VITALS (18 sets, daily range): BP systolic 76–139; BP diastolic 48–84
--- NOTE | 2019-06-29 | NUR ---
RN NOTE: PATIENT STILL NOTED WITH RESTLESSNESS AND ANXIETY M/B YELLING AT STAFF AND KICKING. FREQUENT REORIENTATION AND DISTRACTION PROVIDED. ATTEMPTED TO CALM THE PATIENT DOWN. NON-PHARMACOLOGICAL INTERVENTIONS INEFFECTIVE. PER CHARGE NURSE ED, GIVE ATIVAN ORDERED. WILL CONT. TO MONITOR. Addendum: 06/29/19 at 0233 by CARLOS ENRIQUE ADLER RN 0000 CORRECTION: ATIVAN IV GIVEN THROUGH ROSCOE MIDLINE.
[2019-06-29] MEDS: LORAZEPAM INJ 2 MG/ML VIAL IV PRN ×2 (00:02→05:36)
--- NOTE | 2019-06-29 01:33 | NUR ---
RN NOTE: PATIENT IS ASLEEP AND RESTING COMFORTABLY AT THIS TIME. EASILY AROUSABLE TO TOUCH AND VERBAL STIMULI. NO EPISODES OF AGITATION. WILL CONT. TO MONITOR.
--- NOTE | 2019-06-29 01:35 | NUR ---
2300: NEW ORDER FOR MIDLINE INSERTION. 2330: NEW MIDLINE INSERTED ON ROSCOE, C/D/I, FLUSHING WELL WITH GOOD BLOOD RETURN. RESTARTED DOBUTAMINE 5 MCG ORDERED. WILL CONT. TO MONITOR.
--- NOTE | 2019-06-29 04:00 | NUR ---
RN NOTE: PATIENT NOTED WITH BP 76/56, HR 80. PER CHARGE NURSE, GIVE IV NS BOLUS 500 MLS. WILL CONT. TO MONITOR. Addendum: 06/29/19 at 0740 by CARLOS ENRIQUE ADLER RN PATIENT'S BP IMPROVED; 139/70. WILL CONT. TO MONITOR.
[2019-06-29 05:45] LABS: BASOPHILS % (AUTO) 0.3 % (0.0-2.0); EOSINOPHILS % (AUTO) 0.9 % (0.0-6.0); HEMATOCRIT 40 % (39-51); LYMPHOCYTES # (AUTO) 0.7 /CMM (0.8-4.8); LYMPHOCYTES % (AUTO) 13.1 % (20.0-44.0); MEAN CORPUSCULAR HGB CONC 33 g/dl (31.0-36.0); MEAN CORPUSCULAR VOLUME 93 fL (80-96); MONOCYTES # (AUTO) 0.5 /CMM (0.1-1.30); MONOCYTES % (AUTO) 8.5 % (2.0-12.0); NEUTROPHILS # (AUTO) 4.1 /CMM (1.8-8.9); NEUTROPHILS % (AUTO) 77.2 % (43.0-81.0); PLATELET COUNT (AUTO) 124 /CMM (150-450); RED BLOOD CELL COUNT(AUTO) 4.26 MIL/uL (4.5-6.0); WHITE BLOOD COUNT (AUTO) 5.3 K/uL (4.3-11.0)
[2019-06-29] MEDS ORDERED: DOBUTamine 12.5 MG/ML VIAL IV ONE (05:46)
[2019-06-29] MEDS: DOBUTamine 500 MG in IV D5W 210 ML IV PRN ×2 (05:49→20:00)
[2019-06-29 06:13] LABS: ALBUMIN 2.8 g/dL (3.4-5.0); BILIRUBIN,TOTAL 0.9 mg/dL (0.2-1.0); CREATININE 1.6 mg/dL (0.6-1.3); PHOSPHORUS 3.7 mg/dL (2.5-4.9); POTASSIUM 3.4 mmol/L (3.5-5.1)
--- NOTE | 2019-06-29 07:15 | NUR ---
RN CLOSING NOTE: PATIENT IN BED, AWAKE, AND VERBALLY RESPONSIVE. NO SOB. NO CHEST PAIN. AT 0530, PATIENT NOTED WITH ANXIETY AND RESTLESSNESS M/B YELLING PROFANITY AT STAFF. ATTEMPTED TO CALM PATIENT. ENDORSED TO AM SHIFT NURSE FOR CONTINUITY OF CARE.
--- NOTE | 2019-06-29 07:30 | NUR ---
RNOPECARRIE NOTES RECEIVED PATIENT FROM PM NURSE. PATIENT IS RESTING IN BED, ON BILATERAL WRIST RESTRAINTS ASKING FOR THEM TO BE REMOVED, WILL REMOVE ONCE SITTER IS AT BEDSIDE. PATIENT PULLED OUT IJ AND WAS PREVENTING TREATMENT DURING THE NIGHT, THE RESTRAINTS WERE ORDERED, ORDERS IN PLACE. PT IS A/O X4, MANIPULATIVE. ON ROOM AIR SATURATING WELL AT 96% NO SIGNS OF DISTRESS NOTED. ON TELE MONITOR, V PACING IS OBSERVED, MD AWARE. PT HAS A ROSCOE MIDLINE, DOBUTAMINE 5MCG RUNNING CONTINUOUSLY PER MD ORDER, NO TITRATION. STEVE OFF @2100 ON 06.27.19. VITAL SIGNS STABLE. DR GARIBAY IS OK WITH BP SLIGHTLY UNDER 90 SYSTOLIC. PLAN OF CARE IS TO CONTINUE HAVING PATIENT OFF STEVE WITH STABLE BP. PATIENT SAFETY MAINTAINED, CALL LIGHT WITHIN REACH, WILL CONTINUE TO MONITOR CLOSELY.
[2019-06-29] MEDS: risperiDONE 1 MG TABLET PO SCH ×2 (07:42→19:29)
--- NOTE | 2019-06-29 08:00 | NUR ---
RNNOTES PATIENT HAS A SITTER AT BEDSIDE. REMOVED BILATERAL WRIST RESTRAINTS AT THIS TIME PATIENT IS COOPERATIVE, INSTRUCTED TO NOT PULL LINES AND REMOVED THEM FROM PT SIGHT. PT IS COOPERATIVE, WILL CONTINUE TO MONITOR CLOSELY.
[2019-06-29] MEDS: PANTOPRAZOLE 40 MG TABLET.DR PO SCH ×2 (08:30→16:45)
[2019-06-29] MEDS: ENOXAPARIN SODIUM 30 MG/0.3 ML DISP.SYRIN SQ SCH (08:30)
--- NOTE | 2019-06-29 08:45 | NUR ---
RN NOTES PATIENT REFUSED LOVENOX. BENEFITS AND ADVERSE EFFECTS EXPLAINED TO THE PATIENT, PT STILL REFUSING STATES "I DONT NEED IT." SAFETY MAINTAINED, CALL LIGHT WITHIN REACH, WILL CONTINUE TO MONITOR.
[2019-06-29] MEDS ORDERED: POTASSIUM CHLORIDE 20 MEQ TAB.PRT.SR PO SCH (09:30)
--- NOTE | 2019-06-29 10:00 | NUR ---
RN NOTE PT SYSTOLIC BP IS 80, DR GARIBAY IS AWARE, STATES "I AM FINE WITH THIS BP." WILL CONTINUE TO MONITOR CLOSELY. SAFETY MAINTAINED, CALL LIGHT WITHIN REACH.
--- NOTE | 2019-06-29 12:00 | NUR ---
PT TRANSFERRED TO [facility]. IN STABLE CONDITION, TRANSFERRED FOLLOWING ACLS PROTOCOL WITH MONITOR. SAFETY MAINTAINED, CALL LIGHT WITHIN REACH, WILL CONTINUE TAKING CARE OF THE PATIENT.
[2019-06-29] MEDS: MIRTAZAPINE 15 MG TABLET PO SCH (21:21)
--- NOTE | 2019-06-29 22:06 | NUR ---
RN NOTES PATIENT REFUSES TO BE CLEANED, OFFERED MULTIPLE TIMES TO CHANGE THE DIAPER AND GOWN PT REFUSES. SAFETY MAINTAINED, CALL LIGHT WITHIN REACH, WILL CONTINUE TO MONITOR.
[2019-06-30] VITALS (7 sets, daily range): BP systolic 95–130; BP diastolic 65–82
--- NOTE | 2019-06-30 07:10 | NUR ---
[facility] RN CLOSING NOTES PATIENT AWAKE IN BED, VERBALLY RESPONSIVE, NO SIGNS OF DISTRESS NOTED. NO ACUTE CHANGES TO PATIENT CONDITION DURING MY SHIFT.ALL PATIENT NEEDS MET. NO COMPLAINS OF CHEST PAIN OR SOB AT THIS TIME. PT ON ROOM AIR, TOLERATING WELL, SATURATION @ 98%. PATIENT WAS COOPERATIVE THROUGHOUT THE ENTIRE SHIFT. DOBUTAMINE WAS RUNNING CONTINUOUSLY @ 5MCG PER MD ORDER, ALL SCHEDULED MEDS GIVEN DURING THE PM SHIFT. WOUND PICTURES WERE TAKEN AND PLACED IN THE CHART. SAFETY MAINTAINED, CALL LIGHT WITHIN REACH, ENDORSED TO BULB INSPECTOR NURSE FOR CONTINUITY OF CARE.
--- NOTE | 2019-06-30 07:40 | NUR ---
RN OPENING NOTES RECEIVED PATIENT RESTING IN BED COMFORTABLY. HE IS AOX4, VERBAL, AND ON BEDREST. PT IS ON RA, TOLERATING WELL, NO S/SX OF RESP DISTRESS OR SOB NOTED. TELE MONITOR SHOWING SR WITH VPACING FROM PACEMAKER. SKIN IS INTACT, LUNGS SOUND CLEAR UPON AUSCULTATION, NO EDEMA PRESENT ON EXTREMITIES. ROSCOE MIDLINE IS PATENT AND INTACT, INFUSING DOBUTAMINE AT 5MCG/KG/HR, TOLERATING WELL. SAFETY MEASURES HAVE BEEN IMPLEMENTED, CALL LIGHT IS WITHIN REACH, BED IS IN LOWEST AND LOCKED POSITION, SIDE RAILS UP X2, WILL CONTINUE TO MONITOR FOR ANY CHANGES.
[2019-06-30 07:41] LABS: CALCIUM, SERUM 8.5 mg/dL (8.5-10.1); CREATININE 1.7 mg/dL (0.6-1.3); POTASSIUM 3.8 mmol/L (3.5-5.1)
[2019-06-30] MEDS: risperiDONE 1 MG TABLET PO SCH ×2 (08:09→21:03)
[2019-06-30] MEDS: PANTOPRAZOLE 40 MG TABLET.DR PO SCH ×2 (08:09→16:18)
[2019-06-30] MEDS: ENOXAPARIN SODIUM 30 MG/0.3 ML DISP.SYRIN SQ SCH (08:10)
--- NOTE | 2019-06-30 09:15 | NUR ---
RN NOTES DURING ROUNDS, PT APPEARS TO BE VERY ANXIOUS. HE IS STUTTERING OVER HIS WORDS AND IS HAVING A HARD TIME PUTTING HIS THOUGHTS TOGETHER. ADMINISTERED TYLENOL FOR HEADACHE. AFTER DRAWING UP ATIVAN, PT REFUSED. WASTED REMAINDER OF MEDICATION ACCORDING TOT PROTOCOL. WILL CONTINUE TO MONITOR FOR ANY CHANGES.
[2019-06-30] MEDS: DOBUTamine 500 MG in IV D5W 210 ML IV PRN (09:48)
[2019-06-30] MEDS: LORAZEPAM INJ 2 MG/ML VIAL IV PRN ×2 (13:02→23:23)
--- NOTE | 2019-06-30 13:30 | NUR ---
RN NOTES FOUND PATIENT COVERED IN SWEAT DURING ROUNDS. HE WAS HYPERVENTILATING AND HAVING A HARD TIME PUTTING HIS THOUGHTS TOGETHER. REASSESSED PATIENTS VITALS, ALL WNL. CHANGED PT GOWN, GAVE PRN ATIVAN, AND DID SLOW AND DEEP BREATHING EXERCISE AND REASSURED PATIENT. WILL CONTINUE TO MONITOR.
[2019-06-30 15:10] LABS: BASOPHILS # (AUTO) 0.1 /CMM (0.0-0.2); BASOPHILS % (AUTO) 1.2 % (0.0-2.0); EOSINOPHILS % (AUTO) 1.3 % (0.0-6.0); HEMATOCRIT 41 % (39-51); HEMOGLOBIN 13.4 g/dL (13.5-17.5); LYMPHOCYTES # (AUTO) 0.8 /CMM (0.8-4.8); LYMPHOCYTES % (AUTO) 13.6 % (20.0-44.0); MEAN CORPUSCULAR HGB CONC 33 g/dl (31.0-36.0); MEAN CORPUSCULAR VOLUME 92 fL (80-96); MONOCYTES # (AUTO) 0.5 /CMM (0.1-1.30); MONOCYTES % (AUTO) 8.5 % (2.0-12.0); NEUTROPHILS # (AUTO) 4.6 /CMM (1.8-8.9); NEUTROPHILS % (AUTO) 75.4 % (43.0-81.0); PLATELET COUNT (AUTO) 128 /CMM (150-450); RED BLOOD CELL COUNT(AUTO) 4.42 MIL/uL (4.5-6.0); WHITE BLOOD COUNT (AUTO) 6.1 K/uL (4.3-11.0)
--- NOTE | 2019-06-30 16:48 | NUR ---
RN NOTES PATIENT IS STILL ANXIOUS, VITAL SIGNS ARE STABLE. SPOKE WITH DR. SOTO, RECEIVED ORDER FOR ONE TIME DOSE OF XANAX, WILL CONTINUE TO MONITOR FOR ANY CHANGES.
[2019-06-30] MEDS ORDERED: ALPRAZOLAM 1 MG TABLET PO ONE (17:00)
--- NOTE | 2019-06-30 20:03 | NUR ---
RN CLOSING NOTES PATIENT IS RESTING IN BED COMFORTABLY AT THIS TIME, NO ACUTE CHANGES OCCURRED THROUGHOUT THE SHIFT, VITAL SIGNS ARE STABLE, PT NEEDS HAVE BEEN MET. SAFETY MEASURES HAVE BEEN IMPLEMENTED, CALL LIGHT IS WITHIN REACH, BED IS IN LOWEST AND LOCKED POSITION, SIDE RAILS UP X2, PT HAS BEEN ENDORSED TO NIGHTSHIFT RN FOR LASHONDA.
[2019-06-30] MEDS: MIRTAZAPINE 15 MG TABLET PO SCH (21:03)
[2019-07-01] VITALS: BP 119/88
[2019-07-01 04:00] VITALS: BP 116/80
[2019-07-01 06:45] LABS: BASOPHILS % (AUTO) 0.2 % (0.0-2.0); EOSINOPHILS % (AUTO) 0.2 % (0.0-6.0); HEMATOCRIT 42 % (39-51); HEMOGLOBIN 13.8 g/dL (13.5-17.5); LYMPHOCYTES # (AUTO) 0.6 /CMM (0.8-4.8); LYMPHOCYTES % (AUTO) 9.4 % (20.0-44.0); MEAN CORPUSCULAR HGB CONC 33 g/dl (31.0-36.0); MEAN CORPUSCULAR VOLUME 93 fL (80-96); MONOCYTES # (AUTO) 0.5 /CMM (0.1-1.30); MONOCYTES % (AUTO) 7.6 % (2.0-12.0); NEUTROPHILS # (AUTO) 4.9 /CMM (1.8-8.9); NEUTROPHILS % (AUTO) 82.6 % (43.0-81.0); PLATELET COUNT (AUTO) 128 /CMM (150-450); RED BLOOD CELL COUNT(AUTO) 4.54 MIL/uL (4.5-6.0); WHITE BLOOD COUNT (AUTO) 5.9 K/uL (4.3-11.0)
[2019-07-01 07:15] LABS: CALCIUM, SERUM 8.8 mg/dL (8.5-10.1); CREATININE 2.3 mg/dL (0.6-1.3); MAGNESIUM 2.5 mg/dL (1.8-2.4); PHOSPHORUS 4.4 mg/dL (2.5-4.9); POTASSIUM 3.9 mmol/L (3.5-5.1)
--- NOTE | 2019-07-01 07:25 | NUR ---
MEDICAL SUPPORT SPECIALIST OPENING NOTE RECEIVED BEDSIDE REPORT, PT AWAKE IN BED, ALERT AND ORIENTED X 2, ANXIOUS, RESTLESS, PACING AROUND THE ROOM. PT ON ROOM AIR, SATURATING WELL, RESPIRATIONS EVEN AND UNLABORED, NO SIGNS OF RESPIRATORY DISTRESS NOTED. V PACING ON TELE MONITOR. RIGHT UPPER ARM MIDLINE INTACT, PATENT. BED IN LOW POSITION, LOCKED, CALL LIGHT WITHIN REACH. WILL CONTINUE TO MONITOR.
[2019-07-01 07:30] VITALS: BP 122/68
[2019-07-01 08:00] VITALS: BP 122/68
[2019-07-01] MEDS: PANTOPRAZOLE 40 MG TABLET.DR PO SCH ×2 (08:11→16:52)
[2019-07-01] MEDS: ENOXAPARIN SODIUM 30 MG/0.3 ML DISP.SYRIN SQ SCH (08:17)
[2019-07-01] MEDS: risperiDONE 1 MG TABLET PO SCH (08:17)
[2019-07-01] MEDS ORDERED: BUMETANIDE (1 MG) 1 MG TABLET PO SCH (09:00)
[2019-07-01 12:00] VITALS: BP 107/68
[2019-07-01] MEDS: LORAZEPAM INJ 2 MG/ML VIAL IV PRN (12:17)
[2019-07-01 16:00] VITALS: BP 111/72
[2019-07-01] MEDS ORDERED: RISP1TAB7 PO (16:10)
[2019-07-01] MEDS ORDERED: ENOX30DI SQ (16:10)
[2019-07-01] MEDS ORDERED: MIRT15TA PO (16:10)
[2019-07-01] MEDS ORDERED: BUME1TAB8 PO (16:10)
--- NOTE | 2019-07-01 17:35 | NUR ---
CALLED [facility], GAVE TELEPHONE REPORT TO JEFFREY MYERS
--- NOTE | 2019-07-01 18:23 | NUR ---
REFUSED DISCHARGE PHOTOS
--- NOTE | 2019-07-01 18:50 | NUR ---
PT REFUSED TO GO TO [facility]. TRANSPORTATION CANCELLED. PT SIGNED ALL DISCHARGE PAPERWORK AND LEFT UNIT IN STABLE CONDITION
== END 2019-07-01 18:45 | disposition home or self-care (01) | DRG 280 ==
LOC: ER 01:44 → TELE1 07:20 → MEDSG1 12:21 → ICU 06-25 08:22 → TELE-TD 06-29 12:01 → TELE1 06-30 10:16 → MEDSG1 07-01 16:29
PROVIDERS: ADMIT Nurse Practitioner Acute Care; ATTEND Registered Nurse
PROC: 02HV33Z Insertion of Infusion Device into Superior Vena Cava, Percutaneous Approach (ICD-10-PCS; principal; 2019-06-25)
PROC: B548ZZA Ultrasonography of Superior Vena Cava, Guidance (ICD-10-PCS; 2019-06-25)
PROC: 05HB33Z Insertion of Infusion Device into Right Basilic Vein, Percutaneous Approach (ICD-10-PCS; 2019-06-28)
DX: I50.43 Acute on chronic combined systolic (congestive) and diastolic (congestive) heart failure (principal); I21.A1 Myocardial infarction type 2; N17.0 Acute kidney failure with tubular necrosis; E44.0 Moderate protein-calorie malnutrition; N39.0 Urinary tract infection, site not specified; I42.9 Cardiomyopathy, unspecified; J98.11 Atelectasis; F32.9 Major depressive disorder, single episode, unspecified; Z68.29 Body mass index [BMI] 29.0-29.9, adult; E87.6 Hypokalemia; G47.00 Insomnia, unspecified; I25.10 Atherosclerotic heart disease of native coronary artery without angina pectoris; K59.00 Constipation, unspecified; N40.0 Benign prostatic hyperplasia without lower urinary tract symptoms; Z79.899 Other long term (current) drug therapy; I73.9 Peripheral vascular disease, unspecified; Z91.14 Patient's other noncompliance with medication regimen; Z95.810 Presence of automatic (implantable) cardiac defibrillator; Z95.2 Presence of prosthetic heart valve; Z91.5 Personal history of self-harm; N18.9 Chronic kidney disease, unspecified; K57.30 Diverticulosis of large intestine without perforation or abscess without bleeding
CPT/HCPCS: 36415; 36569; 71045-TC; 76705-TC; 76770-TC; 80048-TC; 80053-TC; 80061-TC; 80076-TC; 81000-TC; 82272-TC; 82550-TC; 83690-TC; 83735-TC; 83880; 83970; 84100-TC; 84155; 84165; 84443-TC; 84484-TC; 85025-TC; 85378-TC; 85730-TC; 87081-TC; 93307-TC; 93970-TC; 97116-TC; 97530-TC; A4216; C1751; C1769; G0378; J1250; J1630; J1650; J1940; J2060; J2370; J2405; J3475; J3490; J7030; J7040; J7050; J7060; Q0162